=== PATIENT | female | born 1935 | race Caucasian/White ===

== ENCOUNTER 2016-04-25 08:18 | Observation (INO) | payer MEDICARE, BC ==
[2016-04-22 10:37] VITALS: BMI 19.4
[~2016-04-25] VITALS: Ht 167.6 cm; Wt 55.3 kg
[2016-04-25] VITALS (24 sets, daily range): BP systolic 119–161; BP diastolic 58–85; PULSE 58–66; RESP 14–23; Ht 167.6 cm; Wt 55.3 kg
[~2016-04-25 08:18] MED LIST: CARSR60 PO; FLEC100T PO; LOSA50TA6 PO; RIVA10TA PO; RIVA15TA PO
[2016-04-25] MEDS ORDERED: DIPHENHYDRAMINE 50 MG CAP PO ONE (09:30)
[2016-04-25] MEDS ORDERED: DIAZEPAM 5 MG TAB PO ONE (09:30)
[2016-04-25] MEDS ORDERED: POLYMYXIN/BACITRACIN 1L IRRIG IRR ONE (10:00)
[2016-04-25] MEDS ORDERED: FENTAnyl 50 MCG/ML VIAL ONE ×2 (10:25→12:21)
[2016-04-25] MEDS ORDERED: LIDOCAINE 1% (MDV) 20 ML INJ ONE (10:25)
[2016-04-25] MEDS ORDERED: MIDAZOLAM 1 MG/ML 2 ML INJ ONE ×3 (10:25→12:22)
[2016-04-25] MEDS ORDERED: CEFAZOLIN 2 GM/50 ML (PMX) 50 ML IVPB ONE ×2 (11:00→12:56)
[2016-04-25] MEDS ORDERED: LIDOCAINE 1% (MDV) 20 ML INJ INJ SCH (11:00)
[2016-04-25] MEDS ORDERED: SOD CHLORIDE 0.9% 500 ML ONE (12:56)
[2016-04-25] MEDS ORDERED: IODIXANOL LOCM 50 ML BTL ONE (12:56)
[2016-04-25] MEDS ORDERED: DILTIAZEM (SR) 60 MG CAP PO PRN (13:00)
[2016-04-25] MEDS: CEFAZOLIN 1 GM/50 ML (PMX) 50 ML IVPB SCH ×2 (14:32→21:30)
--- NOTE | 2016-04-25 14:36 | RADRPT ---
PROCEDURE: XR Chest. CLINICAL INDICATION: Postoperative evaluation TECHNIQUE: Single frontal chest x-ray. COMPARISON: 03/30/2015 FINDINGS: No acute infiltrate, pleural effusion or pneumothorax is identified. Cardiomediastinal silhouette i s within normal limits. There has been interval placement of a left-sided 3 lead cardiac pacing dev ice. Aortic atherosclerotic calcifications are noted. The osseous structures are unremarkable. IMPRESSION: 1. Interval placement of a left-sided 3 lead cardiac pacing device. 2. Aortic atherosclerosis. 3. No evidence of acute cardiopulmonary process. RPTAT: QQ .Tye Presley MD, MD Date Time Electronically viewed and signed by .Tye Presley MD, on 04/25/2016 14:35 .R/
[2016-04-25] MEDS: ONDANSETRON 4 MG INJ IV PRN (20:14)
[2016-04-25] MEDS ORDERED: ACETAMINOPHEN 325 MG TAB PO PRN (20:30)
[2016-04-25] MEDS ORDERED: morphine 10 MG INJ IM PRN (20:30)
[2016-04-25] MEDS: FLECAINIDE 100 MG TAB PO SCH (21:29)
[2016-04-25] MEDS: SOD CHLORIDE 0.9% 1,000 ML IV SCH (22:35)
[2016-04-26] VITALS (12 sets, daily range): BP systolic 108–149; BP diastolic 52–75; PULSE 64–68; RESP 17–18
[2016-04-26] MEDS ORDERED: morphine 2 MG INJ IV PRN (02:00)
[2016-04-26] MEDS: ONDANSETRON 4 MG INJ IV PRN ×2 (02:22→08:19)
[2016-04-26] MEDS: CEFAZOLIN 1 GM/50 ML (PMX) 50 ML IVPB SCH (06:28)
[2016-04-26 07:44] LABS: POTASSIUM 3.9 mmol/L (3.5-5.1)
[2016-04-26 07:47] LABS: CREATININE 0.69 mg/dl (0.44-1.00)
[2016-04-26 07:48] LABS: CALCIUM 8.8 mg/dl (8.4-10.2)
[2016-04-26 07:49] LABS: EOSINOPHILS # 0.1 10^3/ul (0.0-0.5); EOSINOPHILS % 1.5 % (0.0-7.0); HEMATOCRIT 38.2 % (37.0-47.0); HEMOGLOBIN 13.6 g/dl (12.0-16.0); LYMPHOCYTES # 0.9 10^3/ul (0.8-2.9); LYMPHOCYTES % 15.7 % (15.0-51.0); MEAN CORPUSCULAR HGB CONC 35.6 g/dl (32.0-37.0); MEAN CORPUSCULAR VOLUME 95.6 fl (82.0-101.0); MEAN PLATELET VOLUME 9.2 fl (7.4-10.4); MONOCYTE # 0.4 10^3/ul (0.3-0.9); MONOCYTES % 6.3 % (0.0-11.0); NEUTROPHIL # 4.4 10^3/ul (1.6-7.5); NEUTROPHILS % 76.5 % (39.0-77.0); PLATELET COUNT 155 10^3/UL (140-440); RED BLOOD COUNT 3.99 10^6/ul (4.20-5.40); RED CELL DISTRIBUTION WIDTH 13.9 % (11.5-14.5); UNCORRECTED WBC 5.7 10^3/ul (4.8-10.8); WHITE BLOOD COUNT 5.7 10^3/ul (4.8-10.8)
[2016-04-26 07:57] LABS: CONDITION 1
[2016-04-26] MEDS: [UNRECOGNIZED DRUG - REMARK] XX SCH ×2 (08:00→16:00)
[2016-04-26] MEDS ORDERED: ACETAMINOPHEN 500 MG TAB PO PRN (09:00)
[2016-04-26] MEDS ORDERED: HYDROmorphONE 1 MG/ML SYG IV PRN (09:30)
[2016-04-26] MEDS: FLECAINIDE 100 MG TAB PO SCH ×2 (10:36→21:34)
[2016-04-26] MEDS: LOSARTAN 50 MG TAB PO SCH (10:36)
--- NOTE | 2016-04-26 11:50 | PN ---
DATE: 04/26/2016 SUBJECTIVE: Patient is well though reports nausea, feels weak and unable to manage at home alone at this time. She is post-pacemaker yesterday and otherwise doing well. PHYSICAL EXAMINATION: VITAL SIGNS: Stable. NECK: There is no hematoma. LUNGS: Clear. CARDIAC: Regular rate and rhythm. ABDOMEN: Soft. EXTREMITIES: No arrhythmias observed on telemetry. Chest x-ray revealed no pneumothorax. EKG unremarkable. ASSESSMENT: Patient is feeling nauseous, probably related to pain medications. She is anxious abou t going home. I will speak with Dr. Robertson. Given her inability to tolerate p.o., at this time, I would consider o bserving her for an additional 24 hours to make sure she can tolerate food and medications prior to discharge. Dictated By: VIJAY DANGELO/LOUISE Conf#: [id number] DID#: [id number]
--- NOTE | 2016-04-26 12:42 | PN ---
DATE: 04/26/2016 HISTORY OF PRESENT ILLNESS: Ms. Wallace is an 81-year-old female who lives alone who was brought in electively for receiving a 2-chamber pacemaker by Dr. Rothman. She has had tachybrady s yndrome, was having difficulty with being able to tolerate some of the medications. She had her david johanne yesterday and reports that she had nausea from morphine as well as from some of the pain. She is still nauseated today and requests to be held over. REVIEW OF SYSTEMS: CARDIAC: Her review of systems from a cardiac standpoint is negative. NEUROLOGIC: Negative. RESPIRATORY: Negative. GASTROINTESTINAL: Notable for nausea, otherwise negative. PHYSICAL EXAMINATION: VITAL SIGNS: At the time of the physical exam, she has a temperature of 98.6, maximum. Pulse is pa jesse at 64, both by exam and on the monitor. Respiratory rate 18, blood pressure is 58 to 75 diastol ic, 112 to 149 systolic. LUNGS: Clear to auscultation and percussion. The site in the left upper anterior chest wall for th e pacemaker insertion is without evidence of infection or abnormalities. The remainder of exam is without note. ASSESSMENT AND PLAN: 1. Organic heart disease, chronic atrial fibrillation with tachybrady syndrome, mitral regurgitatio n. She is now successfully status post placement of a pacemaker. Her dose of flecainide, has been cut in half from 100 b.i.d. to 50 b.i.d. Management of those medications, I will defer off to Dr. Elena degroot. 2. Hypertension. This is controlled. 3. Migraine syndrome. This is stable, although she frequently has medications for it. Please note she has gone through a number of the prophylactic therapies in the past. 4. Obstructive sleep apnea noted. She refuses CPAP. 5. Asthmatic COPD, mild. She is doing relatively well off of treatment. Declines treatment. 6. Hyperlipidemia. This is noted. 7. Glaucoma. We will get her started back on her drops for that problem. 8. Allergic rhinitis, stable. Dictated By: PREET GARCIA MD, JR/NTS Conf#: [id number] DID#: [id number] CC: VIJAY ROTHMAN MD;*End*
--- NOTE | 2016-04-26 12:44 | OPR ---
DATE OF OPERATION: 04/25/2016 PREOPERATIVE DIAGNOSIS: Tachy-darlin syndrome. POSTOPERATIVE DIAGNOSIS: Tachy-darlin syndrome. PROCEDURE PERFORMED: Implantation of pacemaker with additional RV lead placement at His bundle posit ion to ensure physiological pacing. DESCRIPTION OF THE PROCEDURE: The patient was brought to the catheterization laboratory in a fastin g state. Informed consent was signed for the procedure and sedation. The patient was given antibio tics prior to skin incision for prophylaxis. The left pectoral region was prepped and draped in the usual fashion. A #15 scalpel blade was used to make a skin incision of the left clavicle. A venogram revealed a patent axillary vein. Three ve nous accesses were obtained using axillary approach and 3 guidewires were passed below the diaphragm . A 7-Greek sheath was inserted into the axillary vein through which the right ventricular lead was p laced on the lower RV septum and screwed into place where excellent sensing and pacing characteristi cs were obtained. The sheath was split and the lead was sutured to the fascia in the usual fashion. For the second lead, a 7-Greek sheath was inserted into the left subclavian vein. A [employer] His bundle fixed guide sheath was advanced to the right atrium through which the 4-Greek screw-in lead was advanced to the position of the His bundle. The His bundle was mapped and excellent His bundle was confirmed and pacing revealed no change in QRS morphology. The lead was screwed into place and pacing was confirmed. This sheath was split in the usual fashion. The 7-Greek peel-away sheath wa s split and the lead was sutured to the fascia using 0 silk nonresorbable sutures. Through the third venous access, a 7-Greek sheath was placed and a right atrial lead was placed in the area of the appendage and screwed into place where excellent pacing and sensing characteristics were confirmed. The sheath was split and the lead was sutured to the fascia. The pacemaker pocket was formed using a combination of blunt dissection and electrocautery. The biv entricular pacemaker generator was attached to the 3 leads with the His bundle pacing lead placed in the position of the LV lead with an offset of LV first by 80 milliseconds to ensure His bundle capt ure. The generator was inserted into the pocket and sutured to the fascia. The pocket was irrigated with antibiotic solution. The pocket was closed in layers using 2-0 and 4-0 absorbable sutures. Surgic al adhesive was applied to the skin. [employer] metal spraying machine operator was utilized for all generators and lead s. Dictated By: VIJAY DANGELO/LOUISE Conf#: [id number] DID#: [id number]
[2016-04-26] MEDS: SOD CHLORIDE 0.9% 1,000 ML IV SCH (13:12)
[2016-04-26] MEDS ORDERED: LATANOPROST 0.005% 2.5 ML OPH BOTH EYES SCH (21:00)
[2016-04-27] VITALS (10 sets, daily range): BP systolic 113–157; BP diastolic 58–79; PULSE 64–69; RESP 16–19
[2016-04-27] MEDS: SOD CHLORIDE 0.9% 1,000 ML IV SCH (06:06)
[2016-04-27] MEDS: LOSARTAN 50 MG TAB PO SCH (09:23)
[2016-04-27] MEDS: FLECAINIDE 100 MG TAB PO SCH (09:27)
--- NOTE | 2016-04-27 14:37 | CONS ---
Date/Time of Note Date/Time of Note DATE: 04/27/16 TIME: 14:35 Assessment/Plan Assessment/Plan Additional Assessment/Plan Tachycardia bradycardia syndrome status post pacemaker Hypertension -Pacemaker site appears clean. Patient counseled on no lifting left arm above shoulder for 4 weeks. Follow-up with Dr. Rothman next week for wound check. DC planning Consultation Date/Type/Reason Admit Date/Time Apr 25, 2016 at 18:03 Initial Consult Date Type of Consultation: cv 24 HR Interval Summary Free Text/Dictation Patient denies shortness of breath, chest pain or palpitations Exam/Review of Systems Vital Signs Vitals Vital Signs Date Time Temp Pulse Resp B/P Pulse Ox O2 Delivery O2 Flow Rate FiO2 04/27/16 12:18 67 04/27/16 11:04 97.6 18 113/58 97 04/25/16 18:10 Room Air Intake and Output 04/26/16 04/26/16 04/27/16 15:00 23:00 07:00 Intake Total 1720 ml 885 ml Balance 1720 ml 885 ml Exam No apparent distress Constitutional: alert, frail, oriented Head: normocephalic Neck: supple Respiratory: other (course breath sounds bilaterally, no wheezing) Cardiovascular: other (S1 and S2 heard), regular rate and rhythm Gastrointestinal: bowel sounds, non-tender, soft Musculoskeletal: other (left upper chest wall pacemaker pocket site without erythema or drainage) Extremities: other (no guarding) Results Result Diagram: 04/26/16 0638 04/26/16 0638 Medications Medications Current Medications Sodium Chloride (NS) 1,000 ml @ 75 mls/hr [id number] IV Last administered on 06:06; Admin Dose 75 MLS/HR; Start 04/25/16 at 09:30 Diltiazem HCl (Cardizem Sr) 30 mg DAILY PRN PO ELEVATED BLOOD PRESSURE; Start 04/25/16 at 13:00; Status UNV Flecainide Acetate (Tambocor) 50 mg BID PO Last administered on 04/27/16 09:27 ; Admin Dose 50 MG; Start 04/25/16 at 21:00 Losartan Potassium (Cozaar) 50 mg DAILY PO Last administered on 04/27/16 09:23 ; Admin Dose 50 MG; Start 2/7/17 at 09:00 Ondansetron HCl (Zofran Inj) 4 mg Q6H PRN IV NAUSEA AND/OR VOMITING Last administered on 04/26/16t 08:19; Admin Dose 4 MG; Start 04/25/16 at 20:30 Acetaminophen (Tylenol Tab) 650 mg Q6H PRN PO PAIN AND OR ELEVATED TEMP; Start 04/25/16 at 20:30 Miscellaneous Information (*Order Clarification Bulletin) MEDICATION REQUIRES CLARIFICATI... Q8H XX ; Start 04/26/16 at 08:00 Acetaminophen (Tylenol Tab) 1,000 mg Q6H PRN PO PAIN AND OR ELEVATED TEMP; Start 04/26/16 at 09:00 Hydromorphone HCl (Dilaudid) 1 mg Q6H PRN IV PAIN; Start 04/26/16 at 09:30 Latanoprost (Xalatan) 1 drop HS BOTH EYES ; Start 04/26/16 at 21:00 Tato Byrd DO Apr 27, 2016 14:37
[2016-04-27] MEDS ORDERED: FLEC50TA PO (15:55)
--- NOTE | 2016-04-27 15:56 | PDOCDIS ---
Discharge Instructions CONDITION Patient Condition: Good HOME CARE INSTRUCTIONS: Diet Instructions: Low Fat /CholesterolSpecial Diet: 2g na ACTIVITY: Activity Restrictions Comment: no lifting left arm above shoulder heights x 4 weeks OTHER ORDERS: Other Orders: follow up with Tato Yi DO Apr 27, 2016 15:56
--- NOTE | 2016-04-27 16:47 | DS ---
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 Hx of Present Illness Ms. Elkins is an 81-year-old female who was brought in electively by Dr. Rothman and Dr. Byrd for placement of dual-chamber pacing device after some drug intolerance for the medications and treatment failure from oral medications for this. Please see the dictation of the ship's officer Hospital Course She was brought in electively and taken directly to the procedural suite where she had implantation of her device as noted. She tolerated the procedure well. Postoperatively she did have some evidence of pain and nausea. She was stabilized in the hospital is now being discharged in improved condition. She has no known communicable diseases she is not a hazard to herself or others rehabilitation potential is good and she is competent for medical decision- making Home Meds Active Scripts Flecainide Acetate* (Flecainide Acetate*) 50 Mg Tablet, 50 MG PO BID for 30 Days , TAB Prov:Tato Byrd DO 04/27/16 Reported Medications Diltiazem Hcl* (Cardizem SR*) 60 Mg Capsr, 30 MG PO DAILY Y for ELEVATED BLOOD PRESSURE, CAP 03/30/15 Rivaroxaban* (Xarelto*) 15 Mg Tablet, 15 MG PO WITH DINNER DAILY, TAB 03/30/15 Losartan Potassium* (Losartan Potassium*) 50 Mg Tablet, 50 MG PO DAILY, TAB 03/30/15 Discontinued Reported Medications Flecainide Acetate* (Flecainide Acetate*) 100 Mg Tablet, 1 TAB PO BID, #60 04/22/16 Flecainide Acetate* (Flecainide Acetate*) 150 Mg Tablet, 150 MG PO BID, TAB 03/30/15 PREET GARCIA MD Apr 27, 2016 16:46
--- NOTE | 2016-04-28 11:44 | RADRPT ---
Vent Rate: 60 bpm RR Interval: 0 msec RI Interval: 0 msec QRS Duration: 118 msec QT Interval: 468 msec QTC Interval: 468 msec P-R-T [place]: 0 - -44 - 75 degrees Electronic atrial pacemaker Left axis deviation Inferior infarct , age undetermined Cannot rule out Anteroseptal infarct , age undetermined Abnormal ECG Electronically Signed By: Nain Butler [id number]
== END 2016-04-27 17:05 | disposition home or self-care (01) ==
LOC: SDS 08:18 → TEL 18:03 → SDS 18:03
PROVIDERS: ADMIT Internal Medicine Cardiovascular Disease; ATTEND Internal Medicine Cardiovascular Disease
DX: R00.0 Tachycardia, unspecified (principal); I48.91 Unspecified atrial fibrillation; J44.9 Chronic obstructive pulmonary disease, unspecified; J45.909 Unspecified asthma, uncomplicated; E78.5 Hyperlipidemia, unspecified; N60.19 Diffuse cystic mastopathy of unspecified breast
CPT/HCPCS: 33207; 33225; 71010; 80048; 85025; 93005; C1769; C1898; C2621; C2629; G0378; J0690; J2250; J2270; J2405; J3010; J7030; J7040; Q9967

== ENCOUNTER 2016-05-16 08:32 | Emergency (ER) | payer MEDICARE, BC ==
[~2016-05-16] VITALS: Ht 165.1 cm; Wt 60.0 kg
[~2016-05-16 08:32] MED LIST changes: -FLEC100T PO; +FLEC50TA PO; -RIVA10TA PO
[2016-05-16 08:34] VITALS: Ht 165.1 cm; Wt 60.0 kg
--- NOTE | 2016-05-16 08:56 | RADRPT ---
PROCEDURE: XR Chest. CLINICAL INDICATION: Chest pain TECHNIQUE: Chest AP portable. COMPARISON: 04/25/2016 FINDINGS: Left-sided multi lead pacemaker. The mediastinal structures are unremarkable. There is calcification of the thoracic aorta (consiste nt with atherosclerosis). The heart is normal in size and configuration. The pulmonary vascularity i s normal. There is hyperinflation. No consolidation is identified. The pleural spaces are unremarka ble. The osseous structures are unremarkable. IMPRESSION: Calcification of the thoracic aorta (consistent with atherosclerosis) Hyperinflation No active intrathoracic disease RPTAT: HGDB .Isai Thapa MD, Date Time Electronically viewed and signed by .Isai Thapa MD, on 05/16/2016 08:56 .B/
[2016-05-16 09:04] LABS: ADD SCAN DIFF NO
[2016-05-16 09:19] LABS: BASOPHILS % 1.4 % (0.0-2.0); EOSINOPHILS # 0.1 10^3/ul (0.0-0.5); EOSINOPHILS % 4.2 % (0.0-7.0); HEMATOCRIT 40.9 % (37.0-47.0); LYMPHOCYTES # 1.1 10^3/ul (0.8-2.9); LYMPHOCYTES % 37.3 % (15.0-51.0); MEAN CORPUSCULAR HEMOGLOBIN 34.2 pg (29.0-33.0); MEAN CORPUSCULAR HGB CONC 36.7 g/dl (32.0-37.0); MEAN CORPUSCULAR VOLUME 93.2 fl (82.0-101.0); MEAN PLATELET VOLUME 10.6 fl (7.4-10.4); MONOCYTE # 0.2 10^3/ul (0.3-0.9); MONOCYTES % 6.3 % (0.0-11.0); NEUTROPHIL # 1.5 10^3/ul (1.6-7.5); NEUTROPHILS % 50.5 % (39.0-77.0); PLATELET COUNT 190 10^3/UL (140-415); RED BLOOD COUNT 4.39 10^6/ul (4.20-5.40); RED CELL DISTRIBUTION WIDTH 13.3 % (11.5-14.5); WHITE BLOOD COUNT 2.9 10^3/ul (4.8-10.8)
[2016-05-16 09:22] LABS: CHLORIDE 100 mmol/L (97-110); POTASSIUM 4.1 mmol/L (3.5-5.1); SODIUM 141 mmol/L (135-144)
[2016-05-16 09:24] LABS: CREATININE 0.74 mg/dl (0.44-1.00)
[2016-05-16 09:25] LABS: ANION GAP 16 (8-16); BLOOD UREA NITROGEN 23 mg/dl (7-20); CALCIUM 10.3 mg/dl (8.4-10.2); CARBON DIOXIDE 29 mmol/L (21-31); GLUCOSE 87 mg/dl (70-220); INR 1.19; PROTIME 15.2 Sec (12.2-14.2); PT RATIO 1.2
[2016-05-16 09:26] LABS: PARTIAL THROMBOPLASTIN TIME 34.7 Sec (25.0-35.0)
[2016-05-16 09:39] LABS: TROPONIN-I < 0.012 ng/ml (0.00-0.12)
--- NOTE | 2016-05-16 10:06 | ERD ---
ER Documentation Chief Complaint Date/Time DATE: 05/16/16 TIME: 10:06 Chief Complaint Sudden onset of dizziness upon awakening HPI Patient is an 81-year-old female with coronary disease and hypertension who presents with dizziness. She was brought in by ambulance. She said that she was dizzy after waking up and she was sitting on the side of her bed. She was afraid of falling. She said "nothing was stable". She did have a pacemaker placed 3 weeks ago. She stopped her flecainide [address] Rothman's request but today when she started having symptoms she took a dose of the flecainide. She has no symptoms now. Her primary doctor is Dr. Robertson. ROS All systems reviewed and are negative except as per history of present illness. Medications Home Meds Active Scripts Flecainide Acetate* (Flecainide Acetate*) 50 Mg Tablet, 50 MG PO BID for 30 Days , TAB Prov:CarsonTato rodriguez DO 04/27/16 Reported Medications Diltiazem Hcl* (Cardizem SR*) 60 Mg Capsr, 30 MG PO DAILY Y for ELEVATED BLOOD PRESSURE, CAP 03/30/15 Rivaroxaban* (Xarelto*) 15 Mg Tablet, 15 MG PO WITH DINNER DAILY, TAB 03/30/15 Losartan Potassium* (Losartan Potassium*) 50 Mg Tablet, 50 MG PO DAILY, TAB 03/30/15 Allergies Allergies: Coded Allergies: silver sulfadiazine (Verified Allergy, Intermediate, RASH, 04/25/16) nitrofurantoin (Verified Allergy, Unknown, CANNOT RECALL, 04/25/16) PMhx/Soc History of Surgery: Yes Anesthesia Reaction: No Hx Neurological Disorder: No Hx Respiratory Disorders: No Hx Cardiac Disorders: Yes (HTN, AFIB/AFLUTTER) Hx Psychiatric Problems: No Hx Miscellaneous Medical Probl: Yes (pt has AED/Pacemaker in place ) Hx Alcohol Use: No Hx Substance Use: No Hx Tobacco Use: No Smoking Status: Never smoker FmHx Family History: No diabetes Physical Exam Vitals Vital Signs Date Time Temp Pulse Resp B/P Pulse Ox O2 Delivery O2 Flow Rate FiO2 05/16/16 10:58 98.3 97 16 121/97 100 Room Air 05/16/16 08:34 98.4 109 16 152/72 100 Physical Exam Const: No acute distress Head: Atraumatic Eyes: Normal Conjunctiva ENT: Normal External Ears, Nose and Mouth. Neck: Full range of motion..~ No meningismus. Resp: Clear to auscultation bilaterally Cardio: Regular rate and rhythm, no murmurs Abd: Soft, non tender, non distended. Normal bowel sounds Skin: No petechiae or rashes Back: No midline or flank tenderness Ext: No cyanosis, or edema Neur: Awake but anxious Result Diagram: 05/16/16 0846 05/16/16 0846 Results 24 hrs Laboratory Tests Test 05/16/16 08:46 Activated Partial Thromboplast Time 34.7Sec Anion Gap 16 Basophils # 0.010^3/ul Basophils % 1.4% Blood Urea Nitrogen 23mg/dl Calcium Level 10.3mg/dl Carbon Dioxide Level 29mmol/L Chloride Level 100mmol/L Creatinine 0.74mg/dl Eosinophils # 0.110^3/ul Eosinophils % 4.2% Glucose Level 87mg/dl Hematocrit 40.9% Hemoglobin 15.0g/dl INR International Normalized Ratio 1.19 Lymphocytes # 1.110^3/ul Lymphocytes % 37.3% Magnesium Level 2.1mg/dl Mean Corpuscular Hemoglobin 34.2pg Mean Corpuscular Hemoglobin Concent 36.7g/dl Mean Corpuscular Volume 93.2fl Mean Platelet Volume 10.6fl Monocytes # 0.210^3/ul Monocytes % 6.3% Neutrophils # 1.510^3/ul Neutrophils % 50.5% Nucleated Red Blood Cells # 0.010^3/ul Nucleated Red Blood Cells % 0.0/100WBC Platelet Count 35113^3/UL Potassium Level 4.1mmol/L Prothrombin Time 15.2Sec Prothrombin Time Ratio 1.2 Red Blood Count 4.3910^6/ul Red Cell Distribution Width 13.3% Sodium Level 141mmol/L Thyroid Stimulating Hormone (TSH) 1.860MIU/L Troponin I < 0.012ng/ml White Blood Count 2.910^3/ul Procedures/MDM EKG read by me: Rate/Rhythm: Atrial paced rhythm at a rate of 60 Intervals: Normal Impression: No evidence of ischemia or arrhythmia Chest x-ray shows no obvious pneumonia or pneumothorax or pacemaker lead abnormality per radiology. Patient is an 81-year-old female presents with dizziness. Her EKG shows a paced rhythm. Her laboratory studies are basically normal. I spoke with her government clerk who says he will see her in the office today at 1:30 PM at her scheduled appointment. She feels well and does not have any symptoms at this time. There is no sign of stroke I doubt stroke. I doubt acute coronary syndrome or serious electrolyte abnormality. I believe outpatient management is appropriate but the patient will follow up closely with her government clerk today. Departure Diagnosis: Primary Impression: Palpitations Additional Impression: Dizzy Condition: Fair Patient Instructions: Dizziness, Unk Cause, Palpitations Referrals: VIJAY ROTHMAN MD Additional Instructions: Keep the appointment with Dr. Rothman scheduled for today at 1:30P. DAMI HOOKS MD May 16, 2016 10:06
[2016-05-16 10:58] VITALS: BP 121/97; PULSE 97; RESP 16; TEMP 98.3
[2016-05-16 11:18] LABS: MAGNESIUM 2.1 mg/dl (1.7-2.5)
[2016-05-16 11:49] LABS: THYROID STIMULATING HORMONE 1.86 MIU/L (0.465-4.680)
== END 2016-05-16 10:59 | disposition home or self-care (01) ==
LOC: E/R 08:32
DX: R00.2 Palpitations (principal); I10 Essential (primary) hypertension; Z85.828 Personal history of other malignant neoplasm of skin; Z95.0 Presence of cardiac pacemaker
CPT/HCPCS: 36415; 71010; 80048; 83735; 84439; 84443; 84484; 85025; 85610; 85730; 93005